=== PATIENT | female | born 1990 | race Caucasian/White ===

== ENCOUNTER → 2018-01-26 13:38 | Outpatient (CLI) | payer SELFPAY ==
[2018-01-26 15:48] LABS: Color, Urine Yellow (Yellow); Glucose, Dipstick Normal (Normal); Ketone-Dipstick Negative (Negative); Leukocyte Esterase-Dipstick Negative /ul (Negative); Nitrite-Dipstick Negative (Negative); Occult Blood-Urine 10 /ul (Negative); Protein-Dipstick Negative (Negative); Urine Bilirubin Dipstick Negative (Negative); Urine Clarity Clear (Clear); Urine Urobilinogen Normal (Normal)
[2018-01-26 15:58] LABS: Thyroid Stim Hormone (TSH) 1.36 uIU/mL (0.358-3.74)
[2018-01-26 16:01] LABS: Absolute Lymphocyte Count 1.91 X10^3/ul (0.83-4.51); Absolute Neutrophil Count 6.8 X10^3/uL (2.0-7.7); Basophil# 0.01 X10^3/uL; Basophil% 0.1 % (0-1); Eosinophil# 0.05 X10^3/uL; Eosinophils% 0.5 % (0-5); Hematocrit 33.6 % (37-47); Hemoglobin 11.6 g/dl (12.0-15.0); Lymphocyte # 1.91 X10^3/ul (4.0); Lymphocyte % 20.2 % (19-41); Mean Corp Hgb Conc 34.5 g/gl (32-36); Mean Corpuscular Hgb 29.7 pg (27.0-32.0); Mean Corpuscular Volume 86.2 fL (81-99); Mean Platelet Vol. 10.6 fl (6.2-12.0); Monocyte# 0.72 X10^3/uL; Monocyte% 7.6 % (0-10); Neutrophil # 6.76 X10^3/uL (2.7-7.7); Neutrophil % 71.5 % (47-70); Platelet Count 209 K/mm3 (150-450); RBC Distribution Width CV 13.1 % (11.6-14.6); RBC Distribution Width SD 41.3 fl (35.1-43.9); White Blood Count 9.5 K/mm3 (4.4-11.0)
[2018-01-26 16:47] LABS: HIV - WCH Non-Reactive (Nonreactive); Rubella IgG < 0.2 IU/mL
[2018-01-26 17:10] LABS: POSITIVE COUNT NO; POSITIVE DIFFERENTIAL NO; POSITIVE MORPHOLOGY NO
[2018-01-26 18:15] LABS: Chlamydia Trachomatis by PCR Negative (Negative); Neisserai gonorrhoeae by PCR Negative (Negative); Probe Check PASS; Sample Adequacy Control PASS; Specimen Processing Control PASS
[2018-01-28 01:17] LABS: Prenatal RPR NONREACTIVE (NONREACTIVE)
[2018-01-28 10:47] LABS: HEPATITIS B SURFACE AG Negative (Negative); Hep C Antibodies <0.1 s/co ratio (0.0-0.9)
[2018-02-01 08:54] LABS: HPV Reflexed? NOT INDICATED
== END ==
PROVIDERS: Visit Provider Obstetrics & Gynecology
DX: Z34.82 Encounter for supervision of other normal pregnancy, second trimester (principal); Z12.4 Encounter for screening for malignant neoplasm of cervix; Z11.3 Encounter for screening for infections with a predominantly sexual mode of transmission
CPT/HCPCS: 36415; 81002; 84443; 85025; 86703; 86762; 86803; 87340; 87491; 87591; 88175; G0145

== ENCOUNTER → 2018-06-28 10:00 | Outpatient (CLI) | payer OTHER, SELFPAY | PROVIDERS: Visit Provider Obstetrics & Gynecology | DX: Z36.85 Encounter for antenatal screening for Streptococcus B (principal) | CPT/HCPCS: 87081 ==

== ENCOUNTER 2018-07-30 00:39 | Inpatient (IN) | payer SELFPAY ==
[2018-07-30] MEDS: Lactated Ringers 1,000 ML 50 ML IV ×2 (00:42→13:30)
[2018-07-30 00:50] VITALS: BMI 29.0
[2018-07-30 01:03] LABS: Absolute Lymphocyte Count 2.37 X10^3/ul (0.83-4.51); Absolute Neutrophil Count 8.5 X10^3/uL (2.0-7.7); Basophil# 0.01 X10^3/uL; Basophil% 0.1 % (0-1); Eosinophil# 0.01 X10^3/uL; Eosinophils% 0.1 % (0-5); Hematocrit 34.3 % (37-47); Hemoglobin 11.2 g/dl (12.0-15.0); Lymphocyte # 2.37 X10^3/ul (4.0); Lymphocyte % 20.4 % (19-41); Mean Corp Hgb Conc 32.7 g/gl (32-36); Mean Corpuscular Volume 85.8 fL (81-99); Mean Platelet Vol. 10.7 fl (6.2-12.0); Monocyte# 0.71 X10^3/uL; Monocyte% 6.1 % (0-10); Neutrophil # 8.45 X10^3/uL (2.7-7.7); Platelet Count 248 K/mm3 (150-450); White Blood Count 11.6 K/mm3 (4.4-11.0)
[2018-07-30 01:06] LABS: POSITIVE COUNT NO; POSITIVE DIFFERENTIAL NO; POSITIVE MORPHOLOGY NO
[2018-07-30] MEDS: 0.9% Saline Lock 10 ML Syringe IV (02:09)
--- NOTE | 2018-07-30 03:33 | PCM.PN.BLA ---
Progress Note LABOR PROGRESS NOTE Shahana reports mild worsening of contractions. She felt relief in the shower. AVSS GEN - NAD, AAO x3 SVE 7/95/0 per LADARIUS Tong TOCO 3/10 min FHR 135, moderate variability, + accelerations, no decelerations A/P: 27yo G1 @ 40 6/7wga in active labor, Cat I FHR -Discussed with patient current labor course. Offered amniotomy versus pitocin for augmentation with discussion of risk, benefits including risk for tachysystole with heart race changes that may necessitate section. Patient considering options. -Maternal and statuses reassuring.
--- NOTE | 2018-07-30 07:38 | PCM.PN.BLA ---
Progress Note LABOR PROGRESS NOTE No complaints. AVSS GEN - NAD, AAO x 3 SVE 7/90/-1, cephalic TOCO 2-3/10 min FHR 150, moderate variability, + accelerations, no decelerations A/p: 27yo G1 @ 40 6/7wga in active labor, Cat I FHR -Patient opts for amniotomy at this time. Amniotomy performed with clear fluid. -Maternal and statuses reassuring.
[2018-07-30] MEDS: Oxytocin 30 units/NS 500 ml 30 UNITS/500 ML IV.SOLN 334 UNITS IV (14:45)
--- NOTE | 2018-07-30 15:10 | PCM.OPRPT ---
Problem List (1) 40 weeks gestation of Status: Acute (2) (spontaneous vaginal delivery) Status: Acute Vaginal Delivery Maternal Presentation: Active Labor Amniotic Membrane Rupture Type: Artificial Rupture of Membrane time: 07/30/18 0731h Amniotic Fluid Description: Clear Final BALJIT: 07/24/18 Gestational age: 40 Weeks and 6 Days Date of Procedure: 07/30/18 Pre-Operative Diagnosis: 40 6/7wga, labor Post-Operative Diagnosis: 40 6/7wga, labor Surgery/ Procedure Performed: Spontaneous Vaginal Delivery Type of Anesthesia: None, Local with 1% lidocaine Description of Procedure: Patient was FD/+3 station on my arrival. She pushed to +4 station with vulvar tissue dystocia occurring. Local 1% lidocaine was administered and right mediolateral episiotomy was performed. Patient delivered a vigorous male shortly thereafter in OA. The was placed on the maternal abdomen and further attended by nursery personnel. The cord was doubly clamped and cut after approximately 3 minutes of life. Cord blood specimen was obtained. The placenta delivered spontaneously and appeared intact on inspection. Fundus was firm. The second degree mediolateral episiotomy was repaired using 3-0 Vicryl Rapide with good hemostasis. Sponge and needle counts correct x 2. Presentation: Vertex Placental Delivery Description: Spontaneous Placenta Disposition: [facility] Cord Vessel Description: 3 Vessels Nuchal Cord Compression: Without compression Cord Entanglement: None Estimated Blood Loss: 300 ml A gender: Male (1 minute): 8 (5 minute): 9 Episiotomy Description: Right Mediolateral, Vaginal Extension/lac, 2nd degree Laceration: None Medications given after delivery: IV Pitocin Complications: None
[2018-07-30] MEDS: Oxytocin 30 units/NS 500 ml 30 UNITS/500 ML IV.SOLN 167 UNITS IV (15:15)
--- NOTE | 2018-07-30 15:18 | PCM.DCVAG ---
Discharge Diet: No Restrictions Discharge Activity: Return to Normal Activity May resume sexual activity in: 6 weeks Lifting Restrictions: 10-20 lb Suture Line Care: Avoid Pulling/Pushing Cleanse incision/area with: Soap & Water Additional Instructions: If you experience any of the following, contact your healthcare provider. Bleeding that soaks a pad every hour for 2 hours Fever 100.4 or higher Unrelieved incision or abdominal pain Swelling, redness, discharge or bleeding from your incision or episiotomy site Your incision begins to separate Problems urinating (including inability to urinate or burning while urinating). Visual changes Severe headache Flu-like symptoms Pain or redness in one of both of your breasts Pain, warmth, tenderness or swelling in your legs, especially the calf area Frequent nausea and vomiting Symptoms of depression or anxiety If you experience any of the following, call 911 or go to the nearest Emergency Room. Chest pain Problems breathing Seizure activity Partial or complete paralysis of a body part, slurred speech, weakness or drooping of the face, or a sudden inability to walk or hold your balance Allergies/Adverse Reactions: Allergies No Known Allergies Allergy (Verified 07/30/18 01:05) Medications to take at Discharge Pnv No.95/Ferrous Fum/Folic AC [ Vitamin Tablet] 1 each PO DAILY 07/30/18 Please Follow Up With: Twin Liao MD When: 6 weeks Test Results: Test results from this visit will be discussed in further detail at your follow-up appointment, if applicable.
--- NOTE | 2018-07-30 15:19 | DCINST_ITS ---
Discharge Diet: No Restrictions Discharge Activity: Return to Normal Activity May resume sexual activity in: 6 weeks Lifting Restrictions: 10-20 lb Suture Line Care: Avoid Pulling/Pushing Cleanse incision/area with: Soap & Water Additional Instructions: If you experience any of the following, contact your healthcare provider. * Bleeding that soaks a pad every hour for 2 hours * Fever 100.4 or higher * Unrelieved incision or abdominal pain * Swelling, redness, discharge or bleeding from your incision or episiotomy site * Your incision begins to separate * Problems urinating (including inability to urinate or burning while urinating). * Visual changes * Severe headache * Flu-like symptoms * Pain or redness in one of both of your breasts * Pain, warmth, tenderness or swelling in your legs, especially the calf area * Frequent nausea and vomiting * Symptoms of depression or anxiety If you experience any of the following, call 911 or go to the nearest Emergency Room. * Chest pain * Problems breathing * Seizure activity * Partial or complete paralysis of a body part, slurred speech, weakness or drooping of the face, or a sudden inability to walk or hold your balance Allergies/Adverse Reactions: Allergies No Known Allergies Allergy (Verified 07/30/18 01:05) Medications to take at Discharge Pnv No.95/Ferrous Fum/Folic AC [ Vitamin Tablet] 1 each PO DAILY 07/30/18 Please Follow Up With: Twin Liao MD When: 6 weeks Test Results: Test results from this visit will be discussed in further detail at your follow- up appointment, if applicable.
[2018-07-30 21:14] VITALS: BP 112/64; PULSE 78; RESP 18; TEMP 36.8
[2018-07-31 01:00] VITALS: BP 105/63; PULSE 82; RESP 18; TEMP 37
[2018-07-31] MEDS: Acetaminophen 325 MG Tablet PO (01:09)
[2018-07-31 04:20] VITALS: BP 101/63; PULSE 75; RESP 16; TEMP 36.1
[2018-07-31 08:57] VITALS: BP 113/70; PULSE 84; RESP 18; TEMP 36.4; O2SAT 95
[2018-07-31] MEDS: Ibuprofen 600 MG Tablet PO ×2 (09:42→19:23)
--- NOTE | 2018-07-31 11:11 | PCM.PN.OB ---
Patient Problems: Active and Suspected Problems 40 weeks gestation of (Acute) (spontaneous vaginal delivery) (Acute) Subjective: Shahana's bottom is painless when note moving, but she is sore with movement. No difficulties toileting. Denies heavy lochia. She is . Objective: AVSS - Physical Exam General: Alert, Oriented x3, Cooperative, No apparent distress HEENT: Atraumatic, Normocephalic Lungs: Clear to auscultation, Normal air movement Cardiovascular: Regular rate, Regular Rhythm, Normal S1, Normal S2 Abdomen: Soft, Non Tender, Non-Distended, - - Fundus firm and nontender, lochia moderate Extremities: No edema, No Calf Tenderness Neurological: Neuro grossly intact Psych/Mental Status: Normal Affect, Appropriate, Alert and oriented to time, place, person, mood and affect Vital Signs Temp Pulse Resp BP Pulse Ox 97.5 F L 84 18 113/70 95 07/31/18 08:57 07/31/18 08:57 07/31/18 08:57 07/31/18 08:57 07/31/18 08:57 Oxygen Delivery Method Room Air Weight: 74.2 kg Body Mass Index (BMI) 29.0 Intake and Output for Last 24 Hours 07/29/18 07/30/18 07/31/18 23:59 23:59 23:59 Intake Total 2208 / 2208 Output Total 1850 / 1850 Balance 358 / 358 Medical Necessity - Tobacco Use Smoking Status: Never smoker Assessment/Plan All Active Problems 40 weeks gestation of (Acute) (spontaneous vaginal delivery) (Acute) 27yo PPD#1 s/p doing well. -Rh negative - infant A neg - no Rhogam indicated -Rubella nonimmune - offer MMR - -Routine care
[2018-07-31 12:11] VITALS: BP 98/56; PULSE 76; RESP 18; TEMP 36.4; O2SAT 95
[2018-07-31 15:57] VITALS: BP 117/71; PULSE 73; RESP 18; TEMP 36.6; O2SAT 97
[2018-07-31 20:20] VITALS: BP 130/79; PULSE 93; RESP 18; TEMP 36.6
[2018-08-01 01:20] VITALS: BP 114/69; PULSE 69; RESP 18; TEMP 36.2
--- NOTE | 2018-08-01 07:33 | PN.OBGYN_ITS ---
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 continues to nurse better than yesterday. Objective: AVSS - Physical Exam General: Alert, Oriented x3, Cooperative HEENT: Atraumatic, PERRLA, EOMI, Normocephalic Lungs: Clear to auscultation, Normal air movement Cardiovascular: Regular rate, No murmurs Abdomen: Soft, Non Tender, - - fundus firm and nontender Extremities: - - trace LE edema Neurological: Neuro grossly intact Psych/Mental Status: Normal Affect, Appropriate, Alert and oriented to time, place, person, mood and affect Vital Signs Temp Pulse Resp BP Pulse Ox 97.2 F L 69 18 114/69 97 08/01/18 01:20 08/01/18 01:20 08/01/18 01:20 08/01/18 01:20 07/31/18 15:57 Oxygen Delivery Method Room Air Weight: 74.2 kg Body Mass Index (BMI) 29.0 Intake and Output for Last 24 Hours 07/30/18 07/31/18 08/01/18 23:59 23:59 23:59 Intake Total 2208 / 2208 Output Total 1850 / 1850 Balance 358 / 358 Medical Necessity - Tobacco Use Smoking Status: Never smoker Assessment/Plan All Active Problems 40 weeks gestation of (Acute) (spontaneous vaginal delivery) (Acute) 27yo PPD#2 s/p doing well. -Rh negative - infant A neg - no Rhogam indicated= - -Routine care -d/c home
[2018-08-01 07:44] VITALS: BP 115/70; PULSE 76; RESP 18; TEMP 36.5; O2SAT 95
[2018-08-01 08:28] VITALS: BP 98/55; PULSE 95; RESP 16; TEMP 37.1; O2SAT 99
--- NOTE | 2018-08-05 17:07 | NURSING ---
follow up phone call no answer, left voicemail
== END 2018-08-01 11:30 | disposition home or self-care (01) | DRG 807 ==
PROVIDERS: Admitting Provider Obstetrics & Gynecology; Referring Provider Obstetrics & Gynecology; Visit Provider Obstetrics & Gynecology
DX: O66.0 Obstructed labor due to shoulder dystocia (principal); Z37.0 Single live birth; Z3A.40 40 weeks gestation of pregnancy
CPT/HCPCS: 59025; 59050; 76815; 85025; 86850; 86900; 99218; J7120; A4216; G0378

== ENCOUNTER → 2019-05-16 15:45 | Outpatient (CLI) | payer OTHER, SELFPAY ==
[2019-05-17 12:42] LABS: Chlamydia Trachomatis by PCR Negative (Negative); Neisserai gonorrhoeae by PCR Negative (Negative); Probe Check PASS; Sample Adequacy Control PASS; Specimen Processing Control PASS
== END ==
PROVIDERS: Visit Provider Obstetrics & Gynecology
DX: Z11.3 Encounter for screening for infections with a predominantly sexual mode of transmission (principal)
CPT/HCPCS: 87491; 87591

== ENCOUNTER → 2019-10-02 16:05 | Outpatient (CLI) | payer OTHER, SELFPAY | PROVIDERS: Visit Provider Obstetrics & Gynecology | DX: Z36.85 Encounter for antenatal screening for Streptococcus B (principal) | CPT/HCPCS: 87077; 87081 ==

== ENCOUNTER 2019-10-28 05:05 | Inpatient (IN) | payer SELFPAY, OTHER ==
[2019-10-28] VITALS (31 sets, daily range): BP systolic 95–126; BP diastolic 51–74; PULSE 62–87; RESP 15–18; TEMP 36.4–37.4; O2SAT 96–100; BMI 27.9
[2019-10-28] MEDS: Lactated Ringers 1,000 ML 50 ML IV (05:20)
[2019-10-28 05:42] LABS: Absolute Lymphocyte Count 2.11 X10^3/uL (0.83-4.51); Absolute Neutrophil Count 7.2 X10^3/uL (2.0-7.7); Basophil# 0.02 X10^3/uL; Basophil% 0.2 % (0-1); Eosinophil# 0.04 X10^3/uL; Eosinophils% 0.4 % (0-5); Hematocrit 34.5 % (37-47); Hemoglobin 11.5 g/dL (12.0-15.0); Lymphocyte # 2.11 X10^3/ul (4.0); Lymphocyte % 20.7 % (19-41); Mean Corp Hgb Conc 33.3 g/dL (32-36); Mean Corpuscular Hgb 30.3 pg (27.0-32.0); Mean Platelet Vol. 10.5 fl (6.2-12.0); Monocyte# 0.81 X10^3/uL; Monocyte% 7.9 % (0-10); NRBC Flagged by Analyzer 0 % (0-5); Neutrophil # 7.16 X10^3/uL (2.7-7.7); Neutrophil % 70.1 % (47-70); Platelet Count 218 K/mm3 (150-450); RBC Distribution Width CV 12.9 % (11.6-14.6); RBC Distribution Width SD 42.5 fl (35.1-43.9); Red Blood Count 3.79 M/mm3 (4.2-5.4); White Blood Count 10.2 K/mm3 (4.4-11.0)
--- NOTE | 2019-10-28 06:01 | HP.PCM_ITS ---
- Problem List (1) 40 weeks gestation of Status: Acute History Date of Admission: 10/28/19 Final BALJIT: 10/27/19 Final BALJIT Source: US <20 weeks Gestational age: 40 Weeks and 1 Days History of this : This is a 28 year-old, G [2], P [1], at 40 1/7 weeks gestational age presenting with contractions. Medical History: Medical History (Last Updated 10/28/19 @ 06:[address] Sylvia Calabrese MD) Rh negative status during O26.899, Z67.91 Allergies No Known Allergies Allergy (Verified 10/28/19 05:02) Home Medications: Home Medications Pnv No.95/Ferrous Fum/Folic AC [ Vitamin Tablet] 1 each PO DAILY 07/30/18 Smoking Status: Never smoker Alcohol: None Number of Fetus(es): 1 NST - FHR Rate Baby A Baseline: 125 Variability:: Minimal Accelerations:: 15 x 15 Decelerations:: None NST Reactive:: Yes FHR Category:: Category I Uterine Activity:: 1-2/10 min History Past Pregnancies: Past Pregnancies Delivery Date Name GA/ Weeks Outcome Route Wt Sex Labor Length Anesthesia Delivery Location Provider FOB 07/30/2018 aMck 39 Living 8lb5oz M 14 None [facility] Trini Cobos Labs: Mom's Labs & Results 10/28/19 10/28/19 05:20 05:20 WBC 10.2 RBC 3.79 L Hgb 11.5 L Hct 34.5 L MCV 91.0 MCH 30.3 MCHC 33.3 RDW Std Deviation 42.5 RDW Coeff of Padmini 12.9 Plt Count 218 MPV 10.5 Immature Gran % (Auto) 0.700 Neut % (Auto) 70.1 H Lymph % (Auto) 20.7 [place] % (Auto) 7.9 Eos % (Auto) 0.4 Baso % (Auto) 0.2 Absolute Neuts (auto) 7.2 Absolute Lymphs (auto) 2.11 Nucleated RBC % 0 Blood Type Pending Antibody Screen Pending Course Did the patient receive Yes care? Labs Blood Type: A RH: NEGATIVE RPR/VDRL/Syphilis Nonreactive Rubella status Non-immune HbSAg Negative Date Done: 01/26/19 Chlamydia Negative Gonorrhea Negative HIV/AIDS Non-Reactive Group B Strep: Negative Current Obstetrical History Gestational Diabetes No Incompetent Cervix No Infertility No IUGR No Macrosomia No Hypertension/Pre-eclampsia No Placenta Previa/Abruption No PTL/PROM No Uterine anomaly No Oligohydramnios No Polyhydramnios No Multiple gestation No Past Medical History Asthma No Diabetes No Hypertension No Heart disease No Mitral valve prolapse No Neurologic/Seizure disorder/ No Migraines Kidney disease No Liver disease No Varicosities No Clotting disorders/Hx of DVT No Thyroid Dysfunction No Other medical diseases No Psychiatric disorders No Major trauma No Abnormal PAP smear No Sleep apnea No Mammogram in the last 2 years No Social History Marital Status: Alleged father Mark Hx Smoking No Smoking Status Never smoker Expected Delivery Method: Spontaneous Vaginal Number of Visits: 10 Review of Systems Cardiovascular: Denies: Chest Pain, Edema Respiratory: Denies: Cough, Shortness of Breath Gastrointestinal: Denies: Abdominal Pain Gynecological: Denies: Vaginal bleeding Physical Exam Vitals: Vital Signs Temp Pulse BP Pulse Ox 98.6 F 75 109/71 98 10/28/19 05:41 10/28/19 05:43 10/28/19 05:43 10/28/19 04:50 General: Alert, Oriented x3, Cooperative, No apparent distress HEENT: Atraumatic, Normocephalic Cardiovascular: Regular rate, Regular Rhythm, Normal S1, Normal S2 Lungs: Clear to auscultation, Normal air movement Abdomen: Soft, Non Tender, Non-Distended, Gravid Neurological: Neuro grossly intact PRECISION LENS GENERATOR: Normal external genitalia Estimated gestational size: Appropriate for gestational size Presentation: Cephalic Cervix Dilation (cm): 8 Station: -2 Effacement (%): 90 Assessment/Plan All Active Problems 40 weeks gestation of (Acute) (spontaneous vaginal delivery) (Acute) This is a 28 year-old, G [2], P [1], at 40 1/7 weeks gestational age, Cat II FHR -Maternal and statuses overall reassuring -FHR acceleration with scalp stimulation -Rh negative, also Rh negative - see chart -Amniotomy performed with clear fluid -Anticipate
--- NOTE | 2019-10-28 10:02 | PCM.PN.BLA ---
Progress Note LABOR PROGRESS NOTE Patient reports contractions have intensified. AVSS GEN - NAD, AAO x 3 FHR 130, minimal variability, + accelerations, no decelerations TOCO 4/10 min SVE right lip/0 station per RN exam A/P: 28yo @ 40 1/7wga in active labor -Maternal and statuses reassuring -Anticipate STROKE Vital Signs/Narrative: Vital Signs Temp Pulse BP Pulse Ox 10/28/19 09:26 67 101/65 10/28/19 09:24 98.9 F 64 99 10/28/19 08:30 73 100/60 10/28/19 08:27 68 97 10/28/19 08:26 98.5 F 10/28/19 07:48 78 109/63 10/28/19 07:46 97.7 F L 74 109/63 98 10/28/19 07:09 98.8 F 65 110/68
[2019-10-28] MEDS: Oxytocin 30 units/NS 500 ml 30 UNITS/500 ML IV.SOLN 334 UNITS IV (10:43)
--- NOTE | 2019-10-28 11:11 | PCM.OPRPT ---
Problem List (1) 40 weeks gestation of Status: Acute Vaginal Delivery Maternal Presentation: Active Labor Amniotomy for augmentation Amniotic Membrane Rupture Type: Artificial Rupture of Membrane time: 10/28/19 Amniotic Fluid Description: Clear Final BALJIT: 10/27/19 Final BALJIT Source: US <20 weeks Gestational age: 40 Weeks and 1 Days Date of Procedure: 10/28/19 Pre-Operative Diagnosis: 40 1/7wga, labor Post-Operative Diagnosis: same Surgery/ Procedure Performed: Spontaneous Vaginal Delivery Type of Anesthesia: Local with 1% lidocaine Description of Procedure: Patient was FD/+2 station and pushed to deliver a vigorous female infant in RENET[place]. The infant was placed on the maternal abdomen and further attended by nursery personnel. The cord was doubly clamped and cut. Cord blood was obtained. The placenta delivered spontaneously and appeared intact on inspection. A first degree perineal laceration with vaginal extension was repaired with 3-0 Vicryl Rapide. Sponge and needle counts correct x 2. Presentation: Vertex Placental Delivery Description: Spontaneous Placenta Disposition: [facility] Cord Vessel Description: 3 Vessels Estimated Blood Loss: 350 ml A gender: Female (1 minute): 8 (5 minute): 9 Episiotomy Description: None Laceration: None Medications given after delivery: IV Pitocin Complications: None
[2019-10-28] MEDS: Oxytocin 30 units/NS 500 ml 30 UNITS/500 ML IV.SOLN 167 UNITS IV (11:13)
[2019-10-29 00:35] VITALS: BP 96/63; PULSE 61; RESP 18; TEMP 36.7; O2SAT 97
--- NOTE | 2019-10-29 00:52 | NURSING ---
Verified with pt chart and hot car charger, pt rubella status is immune. Pt does not need MMR vaccine.
[2019-10-29 03:40] VITALS: BP 105/60; PULSE 82; RESP 16; TEMP 36.2; O2SAT 100
[2019-10-29 09:12] VITALS: BP 96/61; PULSE 64; RESP 18; TEMP 36.7
--- NOTE | 2019-10-29 10:12 | DCINST_ITS ---
Discharge Diet: No Restrictions Discharge Activity: Return to Normal Activity May resume sexual activity in: 6 weeks Call your doctor if you observe: Fever of 101 or Higher, Inability to urinate, Inability to have a bowel movement, Using more than one pad per hour, Shortness of breath, Chest pain, Calf discomfort, Uncontrolled pain Additional Instructions: If you experience any of the following, contact your healthcare provider. * Bleeding that soaks a pad every hour for 2 hours * Fever 100.4 or higher * Unrelieved incision or abdominal pain * Swelling, redness, discharge or bleeding from your incision or episiotomy site * Your incision begins to separate * Problems urinating (including inability to urinate or burning while urinating). * Visual changes * Severe headache * Flu-like symptoms * Pain or redness in one of both of your breasts * Pain, warmth, tenderness or swelling in your legs, especially the calf area * Frequent nausea and vomiting * Symptoms of depression or anxiety If you experience any of the following, call 911 or go to the nearest Emergency Room. * Chest pain * Problems breathing * Seizure activity * Partial or complete paralysis of a body part, slurred speech, weakness or drooping of the face, or a sudden inability to walk or hold your balance Allergies/Adverse Reactions: Allergies No Known Allergies Allergy (Verified 10/28/19 05:02) Medications to take at Discharge Pnv No.95/Ferrous Fum/Folic AC [ Vitamin Tablet] 1 each PO DAILY 07/30/18 Please Follow Up With: Twin Liao MD When: 6 weeks Primary Care Physician: Care Physician,No Primary [Primary Care Provider] - Test Results: Test results from this visit will be discussed in further detail at your follow- up appointment, if applicable.
--- NOTE | 2019-10-29 10:12 | PCM.DCVAG ---
Discharge Diet: No Restrictions Discharge Activity: Return to Normal Activity May resume sexual activity in: 6 weeks Call your doctor if you observe: Fever of 101 or Higher, Inability to urinate, Inability to have a bowel movement, Using more than one pad per hour, Shortness of breath, Chest pain, Calf discomfort, Uncontrolled pain Additional Instructions: If you experience any of the following, contact your healthcare provider. Bleeding that soaks a pad every hour for 2 hours Fever 100.4 or higher Unrelieved incision or abdominal pain Swelling, redness, discharge or bleeding from your incision or episiotomy site Your incision begins to separate Problems urinating (including inability to urinate or burning while urinating). Visual changes Severe headache Flu-like symptoms Pain or redness in one of both of your breasts Pain, warmth, tenderness or swelling in your legs, especially the calf area Frequent nausea and vomiting Symptoms of depression or anxiety If you experience any of the following, call 911 or go to the nearest Emergency Room. Chest pain Problems breathing Seizure activity Partial or complete paralysis of a body part, slurred speech, weakness or drooping of the face, or a sudden inability to walk or hold your balance Allergies/Adverse Reactions: Allergies No Known Allergies Allergy (Verified 10/28/19 05:02) Medications to take at Discharge Pnv No.95/Ferrous Fum/Folic AC [ Vitamin Tablet] 1 each PO DAILY 07/30/18 Please Follow Up With: Twin Liao MD When: 6 weeks Primary Care Physician: Care Physician,No Primary [Primary Care Provider] - Test Results: Test results from this visit will be discussed in further detail at your follow-up appointment, if applicable.
== END 2019-10-29 14:05 | disposition home or self-care (01) | DRG 807 ==
LOC: WPOUT 05:08 → WP 05:09
PROVIDERS: Admitting Provider Obstetrics & Gynecology; Visit Provider Obstetrics & Gynecology
DX: O70.0 First degree perineal laceration during delivery (principal); Z37.0 Single live birth; Z3A.40 40 weeks gestation of pregnancy
CPT/HCPCS: 59050; 85025; 86850; 86900; 86901; 99218; J7120; G0378

== ENCOUNTER → 2019-12-19 09:30 | Outpatient (CLI) | payer OTHER, SELFPAY ==
[2019-10-28 05:01] VITALS: BMI 27.9
[2019-12-22 16:33] LABS: HPV Reflexed? NOT INDICATED
== END ==
PROVIDERS: Visit Provider Obstetrics & Gynecology
DX: Z12.4 Encounter for screening for malignant neoplasm of cervix (principal)
CPT/HCPCS: 88175; G0145